=== PATIENT | male | born 1965 | race Caucasian/White ===

== ENCOUNTER 2016-10-21 21:47 | Emergency (ER) | payer BC ==
[2016-10-21] MEDS ORDERED: INSULIN REGULAR HUMAN 100 UNIT/1 ML 10 ML MDV IVP STA (22:17)
[2016-10-21] MEDS ORDERED: SODIUM CHLORIDE 0.9% 1,000 ML IV STA (22:17)
[2016-10-21] MEDS ORDERED: INSULIN REGULAR HUMAN 100 UNIT/1 ML 10 ML MDV ONE (22:32)
== END 2016-10-22 00:18 | disposition home or self-care (01) ==
DX: E11.65 Type 2 diabetes mellitus with hyperglycemia (principal); Z79.84 Long term (current) use of oral hypoglycemic drugs; I10 Essential (primary) hypertension; E78.00 Pure hypercholesterolemia, unspecified
CPT/HCPCS: 36415; 80048; 81003; 82009; 85025; 99283; J1815

== ENCOUNTER 2019-03-31 06:49 | Emergency (ER) | payer BC ==
[2019-03-31] MEDS ORDERED: KETOROLAC 30 MG/ML VIAL IVP STA (07:26)
[2019-03-31] MEDS ORDERED: SODIUM CHLORIDE 0.9% 1,000 ML IV ONE (07:26)
[2019-03-31] MEDS ORDERED: ONDANSETRON 4 MG/2 ML VIAL IVP STA (07:26)
--- NOTE | 2019-03-31 07:31 | ED Physician Documentation ---
PD HPI ABD PAIN - Stated complaint Stated Complaint: ABD PX - Chief complaint Chief Complaint: Abd Pain - History obtained from History obtained from: Patient - History of Present Illness Timing - onset: How many days ago (2) Timing - duration: Days (2) Timing - details: Still present Pain level now: 2 Quality: Pain Location: LLQ Associated symptoms: Nausea, Diarrhea Similar symptoms before: No diagnosis - Additional information Additional information: The patient is a 53-year-old insulin-dependent diabetic male who presents with left lower quadrant abdominal pain that has been waxing and waning for the past 2 days. He reports associated nausea, without vomiting. He reports multiple episodes of watery diarrhea. He has had chills and sweats, but is uncertain of fever. He denies dysuria. He reports history of chronic low back pain for which he takes ibuprofen, up to 800 mg 3 times daily. He reports having a similar episode 1 month ago, lasting for about 3 days. His past medical history, in addition to insulin-dependent diabetes, is significant for CABG in 2015, and remote history of appendectomy and cholecystectomy. In addition to insulin and metformin, his medications include Eliquis. Review of Systems Constitutional: reports: Chills, Sweats Nose: denies: Congestion Throat: denies: Sore throat Cardiac: denies: Chest pain / pressure Respiratory: denies: Dyspnea, Cough GI: reports: Abdominal Pain, Nausea, Diarrhea. denies: Vomiting : denies: Dysuria Skin: denies: Rash Musculoskeletal: reports: Back pain (Chronically, with no recent change.) Neurologic: reports: Headache (Chronic, low-grade headache.). denies: Focal weakness, Numbness PD PAST MEDICAL HISTORY - Past Medical History Past Medical History: Yes Cardiovascular: Hypertension, High cholesterol Endocrine/Autoimmune: Type 2 diabetes : Other Other Past Medical History: Enlarged Prostate - Past Surgical History Past Surgical History: Yes General: Cholecystectomy, Appendectomy Cardiovascular: Cardiac catheterization - Present Medications Home Medications: Ambulatory Orders Medication Instructions Recorded Confirmed Apixaban [Eliquis] 5 mg PO DAILY 04/29/16 03/31/19 Atorvastatin Calcium 80 mg PO QPM 04/29/16 03/31/19 Fenofibrate 1 tab PO QPM 04/29/16 03/31/19 Losartan Potassium 100 mg PO DAILY 04/29/16 03/31/19 Metformin HCl 1 tab PO BID 04/29/16 03/31/19 Metoprolol Succinate [Toprol Xl] 25 mg PO BID 04/29/16 03/31/19 diltiaZEM [Cardizem] 30 mg PO DAILY 04/29/16 03/31/19 Chlorthalidone 1 tab PO DAILY 03/31/19 03/31/19 - Allergies Allergies/Adverse Reactions: Allergies Allergy/AdvReac Type Severity Reaction Status Date / Time No Known Drug Allergies Allergy Verified 03/31/19 06:56 - Social History Does the pt smoke?: No Smoking Status: Never smoker Does the pt drink ETOH?: No Does the pt have substance abuse?: No Additional Social History: Dentist. - Immunizations Immunizations are current?: Yes - POLST Patient has POLST: No PD ED PE NORMAL - Vitals Vital signs reviewed: Yes (Borderline diastolic hypertension.) - General General: Alert and oriented X 3, Well developed/nourished - HEENT HEENT: Atraumatic, Moist mucous membranes, Pharynx benign - Neck Neck: No adenopathy, No JVD - Cardiac Cardiac: RRR, No murmur - Respiratory Respiratory: No respiratory distress, Clear bilaterally - Abdomen Abdomen: Soft, Non distended, Other (Diminished bowel tones. Soft with tenderness to palpation in the left lower quadrant, without rebound or guarding.) - Back Back: No CVA TTP - Derm Derm: No rash - Extremities Extremities: No edema, No calf tenderness / cord - Neuro Neuro: Alert and oriented X 3, No motor deficit, Normal speech Results - Vitals Vitals: Vital Signs - 24 hr 03/31/19 03/31/19 03/31/19 06:53 07:45 09:17 Temperature 36.8 C 36.5 C 36.6 C Heart Rate 94 91 80 Respiratory 18 16 18 Rate Blood Pressure 116/90 H 115/71 91/62 O2 Saturation 96 96 97 Oxygen O2 Source Room air - Labs Labs: Laboratory Tests 03/31/19 03/31/19 03/31/19 07:20 07:25 07:25 WBC 6.5 RBC 5.73 Hgb 16.1 Hct 48.7 MCV 85.0 MCH 28.1 MCHC 33.1 RDW 14.7 Plt Count 224 MPV 9.7 Neut # (Auto) 4.0 Lymph # (Auto) 1.7 [place] # (Auto) 0.6 Eos # (Auto) 0.2 Baso # (Auto) 0.1 Absolute Nucleated RBC 0.00 Nucleated RBC % 0.0 Sodium 137 Potassium 3.5 Chloride 99 L Carbon Dioxide 25 Anion Gap 13.0 BUN 22 H Creatinine 1.0 Estimated GFR (MDRD) 78 L Glucose 159 H Calcium 10.5 H Total Bilirubin 0.5 AST 22 ALT 26 Alkaline Phosphatase 63 Total Protein 7.7 Albumin 4.4 Globulin 3.3 Albumin/Globulin Ratio 1.3 Lipase 30 Urine Color YELLOW Urine Clarity CLEAR Urine pH 6.0 Ur Specific [place] 1.015 Urine Protein NEGATIVE Urine Glucose (UA) >=1000 H Urine Ketones NEGATIVE Urine Occult Blood NEGATIVE Urine Nitrite NEGATIVE Urine Bilirubin NEGATIVE Urine Urobilinogen 0.2 (NORMAL) Ur Leukocyte Esterase NEGATIVE Ur Microscopic Review NOT INDICATED Urine Culture Comments NOT INDICATED PD MEDICAL DECISION MAKING - ED course Complexity details: reviewed results, re-evaluated patient, considered differential, d/w patient ED course: The underlying cause of the patient's left-sided abdominal pain is uncertain at this time. Diverticulitis is a consideration, as is gastroenteritis or colitis. His white count is normal at 6.5. His chemistry panel reveals an elevated BUN to creatinine ratio of 22/1.0. His urinalysis is normal except for glucosuria of greater than 1000. CT scanner at [facility] is currently not functional, so I discussed the patient's condition with the emergency physician on duty at [facility], where the patient plans to go for CT scan of his abdomen. Treatment in the emergency department included administration of normal saline 1 L IV, ketorolac 30 mg IV, and Zofran 4 mg IV. His nausea resolved, and his discomfort improved. On reexamination he remains tender to palpation in the left lower quadrant. After I discussed the patient's condition with Dr. Carranza at [facility], she accepted transfer for further evaluation and treatment. The patient will be discharged and will go by private auto to [facility]. Departure - Departure Disposition: 01 Home, Self Care Clinical Impression: Abdominal pain Qualifiers: Abdominal location: left lower quadrant Qualified Code(s): R10.32 - Left lower quadrant pain Diarrhea Qualifiers: Diarrhea type: unspecified type Qualified Code(s): R19.7 - Diarrhea, unspecified Condition: Stable Instructions: ED Abdominal Pain Unkn Cause Comments: Go directly to [facility] in [place] where I have spoken to the emergency physician and advised that you will be arriving with the expectation of a CT scan of your abdomen and pelvis to further evaluate your left lower quadrant abdominal pain. Please do not eat or drink anything between now and your evaluation at [facility]. Discharge Date/Time: 03/31/19 09:40
[2019-03-31 07:36] LABS: BASOPHILS # (AUTO) 0.1 10^3/uL (0.0-0.1); BASOPHILS % (AUTO) 1.1 %; EOSINOPHILS # (AUTO) 0.2 10^3/uL (0.0-0.7); EOSINOPHILS % (AUTO) 2.9 %; HGB - HEMOGLOBIN 16.1 g/dL (14.0-18.0); LYMPHOCYTES # (AUTO) 1.7 10^3/uL (1.5-3.5); LYMPHOCYTES % (AUTO) 25.7 %; MEAN CORPUSCULAR HEMOGLOBIN 28.1 pg (27.0-31.0); MEAN CORPUSCULAR HGB CONC 33.1 g/dL (32.0-36.0); MEAN PLATELET VOLUME 9.7 fL (7.4-11.4); MONOCYTES # (AUTO) 0.6 10^3/uL (0.0-1.0); MONOCYTES % (AUTO) 9.1 %; NEUTROPHILS % (AUTO) 60.9 %; PLT - PLATELET COUNT 224 10^3/uL (130-450); RED BLOOD COUNT 5.73 10^6/uL (4.70-6.10); RED CELL DISTRIBUTION WIDTH 14.7 % (12.0-15.0); WHITE BLOOD COUNT 6.5 x10^3/uL (4.8-10.8)
[2019-03-31 08:15] LABS: BILIRUBIN,URINE NEGATIVE (NEGATIVE); GLUCOSE, URINE (UA) >=1000 mg/dL (NEGATIVE); KETONES,URINE (UA) NEGATIVE (NEGATIVE); LEUKOCYTE ESTERASE, URINE NEGATIVE (NEGATIVE); NITRITE,URINE NEGATIVE (NEGATIVE); OCCULT BLOOD,URINE NEGATIVE (NEGATIVE); PROTEIN,URINE NEGATIVE (NEGATIVE); UROBILINOGEN,URINE 0.2 (NORMAL) E.U./dL (NORMAL)
[2019-03-31 08:20] LABS: ALBUMIN 4.4 g/dL (3.2-5.5); ALBUMIN/GLOBULIN RATIO 1.3 (1.0-2.2); BILIRUBIN,TOTAL 0.5 mg/dL (0.2-1.0); CALCIUM 10.5 mg/dL (8.5-10.3); TOTAL PROTEIN 7.7 g/dL (6.7-8.2)
[2019-03-31 08:24] LABS: CLARITY,URINE CLEAR (CLEAR)
[2019-03-31 09:18] VITALS: BP 91/62
== END 2019-03-31 09:40 | disposition home or self-care (01) ==
LOC: ED 06:49
DX: R10.32 Left lower quadrant pain (principal); R19.7 Diarrhea, unspecified; I10 Essential (primary) hypertension; E11.9 Type 2 diabetes mellitus without complications; Z79.4 Long term (current) use of insulin
CPT/HCPCS: 36415; 80053; 81001; 81003; 83690; 85025; 87086; 96361; 96374; 99284

== ENCOUNTER 2020-11-17 22:04 | Emergency (ER) | payer BC, OTHER ==
--- OUTSIDE RECORDS SUMMARY | 2020-11-17 22:22 | EXTERNAL MEDICAL SUMMARY RPT | Continuity of Care Document ---
:1965 Demographics Phone Unavailable Preferred Language Unknown Marital Status Unknown Caodaism Affiliation Unknown Race Unknown Ethnic Group Unknown Author Organization [facility] Address [address] [phone] Phone Social History date description facility [phone]
--- NOTE | 2020-11-17 23:17 | ED Physician Documentation ---
PD HPI LOWER EXT INJURY - Stated complaint Stated Complaint: LT LEG SWELLING - Chief complaint Chief Complaint: Ext Problem - History obtained from History obtained from: Patient - Additional information Additional information: Patient comes emergency department chief complaint of acute left lower extremity swelling. Patient states he was just sitting tonight when he suddenly noticed that his leg was becoming tight. He states it felt like somebody just needed to pop it. The patient denies any pain in the leg. No fevers or chills. No chest pain or shortness of breath. He has a history of both coronary artery disease and previous DVT, and is been on Eliquis and Plavix for years. No recent dose changes. No missed doses. Patient states he actually took an extra dose of his Eliquis tonight because he was worried about formation of a blood clot again. Patient states he had bypass surgery and stents done in 2019, and that his last DVT was about 10 years ago. No recent trauma to the leg. No redness. Patient has not had any surgeries on the left lower extremity. No other complaints at this time. Patient states that over the hour, the swelling seems to have gotten a little better than when it first started. Review of Systems Ten Systems: 10 systems reviewed and negative Constitutional: reports: Reviewed and negative. denies: Fever, Chills Eyes: reports: Reviewed and negative Ears: reports: Reviewed and negative Nose: reports: Reviewed and negative Throat: reports: Reviewed and negative Cardiac: reports: Reviewed and negative Respiratory: reports: Reviewed and negative GI: reports: Reviewed and negative : reports: Reviewed and negative Skin: reports: Reviewed and negative Musculoskeletal: reports: Extremity swelling. denies: Extremity pain Neurologic: reports: Reviewed and negative Psychiatric: reports: Reviewed and negative Endocrine: reports: Reviewed and negative Immunocompromised: reports: Reviewed and negative PD PAST MEDICAL HISTORY - Past Medical History Past Medical History: Yes Cardiovascular: Hypertension, High cholesterol Endocrine/Autoimmune: Type 2 diabetes GI: Diverticulitis : Other - Past Surgical History Past Surgical History: Yes General: Cholecystectomy, Appendectomy Cardiovascular: CABG, Coronary stent, Cardiac catheterization - Present Medications Home Medications: Ambulatory Orders Medication Instructions Recorded Confirmed Apixaban [Eliquis] 5 mg PO BID 04/29/16 11/17/20 Atorvastatin Calcium 80 mg PO QPM 04/29/16 11/17/20 Fenofibrate 54 mg PO DAILY 04/29/16 11/17/20 Losartan Potassium 100 mg PO DAILY 04/29/16 11/17/20 Metformin HCl 1,000 mg PO BID 04/29/16 11/17/20 Metoprolol Succinate [Toprol Xl] 25 mg PO BID 04/29/16 11/17/20 Chlorthalidone 25 mg PO DAILY 03/31/19 11/17/20 Colesevelam HCl [Welchol] 1,875 mg PO BID 04/21/19 11/17/20 Empagliflozin [Jardiance] 10 mg PO DAILY 04/21/19 11/17/20 Insulin Glargine,Hum.rec.anlog 55 unit SUBQ DAILY 04/21/19 11/17/20 [Toujeo Solostar] Loperamide [Imodium] 2 mg PO Q2H PRN MDD 8 caps 04/21/19 11/17/20 Tamsulosin [Flomax] 0.4 mg PO DAILY 04/21/19 11/17/20 Clopidogrel [Plavix] 75 mg PO DAILY 11/17/20 11/17/20 - Allergies Allergies/Adverse Reactions: Allergies Allergy/AdvReac Type Severity Reaction Status Date / Time No Known Drug Allergies Allergy Verified 11/17/20 22:13 - Social History Does the pt smoke?: No Smoking Status: Never smoker Does the pt drink ETOH?: No Does the pt have substance abuse?: No - Immunizations Immunizations are current?: Yes - POLST Patient has POLST: No PD ED PE NORMAL - Vitals Vital signs reviewed: Yes - General General: Alert and oriented X 3, No acute distress, Well developed/nourished - HEENT HEENT: Atraumatic, PERRL, EOMI, Moist mucous membranes - Neck Neck: Supple, no meningeal sign - Cardiac Cardiac: RRR, No murmur, Strong equal pulses - Respiratory Respiratory: No respiratory distress, Clear bilaterally - Derm Derm: Warm and dry, Other (No erythema of left lower extremity. No crepitus, induration, or fluctuance.) - Extremities Extremities: No deformity, Other (Mild left lower extremity edema, with trace pitting. No tenderness of calf. No edema or tenderness at knee or ankle. Full range of motion.) - Neuro Neuro: Alert and oriented X 3 - Psych Psych: Normal mood, Normal affect Results - Vitals Vitals: Vital Signs - 24 hr 11/17/20 22:09 Temperature 36.1 C L Heart Rate 72 Respiratory 16 Rate Blood Pressure 157/85 H O2 Saturation 97 Oxygen O2 Source Room air PD MEDICAL DECISION MAKING - ED course Complexity details: considered differential, d/w patient ED course: I discussed with the patient that the likelihood of having formed another DVT while on both Eliquis and Plavix is low. Additionally, the symptoms have been extremely acute, and patient has specifically denied any symptoms prior to few hours ago. Furthermore, the patient has no symptoms consistent with a PE and is very well-appearing. At this point in time, I have discussed with the patient that there is no way to know for sure whether he has a DVT again except to do an ultrasound. I have offered this tonight in the ED, but have also discussed that since his symptoms seem to be improving a little and he is already on anticoagulation, it may be reasonable to see how the symptoms go tomorrow, which is Thursday, and make an appointment with his primary care physician on Thursday if the symptoms do not seem to have fully improved. Patient understands that while at this point in time, there is not evidence of an emergent condition, I am certainly willing to order the ultrasound from the ED tonight if he prefers. The patient would prefer to see how things go tomorrow and plan to follow-up with his primary care physician. I feel that this is a reasonable option, all things considered. We have discussed that should the patient develop any chest pain or shortness of breath, he should return to the emergency department immediately. The patient also understands that if his leg continues to swell and become increasingly enlarged and uncomfortable, he may return to the emergency dept at any time for further evaluation Departure - Departure Disposition: 01 Home, Self Care Clinical Impression: Swelling of lower extremity Condition: Stable Instructions: ED Leg Swelling Unilateral Comments: As we have discussed, it is not clear exactly why your left leg has acutely become swollen tonight. You have not experienced any trauma, and there is no evidence of infection. Generally, formation of a clot large enough to cause symptoms occurs over a longer period of time, at least over a number of days. Furthermore, given that you are on 2 anticoagulant medications, it would be highly unlikely that you would form another clot. However, it is not outside of the realm of possibility, and as we have discussed, an ultrasound could be done from the emergency department, or ordered by her primary care physician. You have opted for now to see how things go tomorrow and follow-up with your primary care physician if the symptoms seem to be worsening or not getting better. This is a reasonable option, given that you are already on blood thinners. However, if you find that your leg is rapidly becoming worse, you may return to the emergency department for re-evaluation. If you develop chest pain or shortness of breath, you should return to the emergency department immediately. For now, we will have you continue the medications that you are on at your current doses. When you follow-up with your primary care physician, please discuss whether he or she feels you should have any changes made, or stay on your current regimen.
[2020-11-17 23:36] VITALS: BP 145/76
== END 2020-11-17 23:35 | disposition home or self-care (01) ==
LOC: ED 22:04
DX: R60.0 Localized edema (principal); Z86.718 Personal history of other venous thrombosis and embolism; Z79.01 Long term (current) use of anticoagulants; Z79.02 Long term (current) use of antithrombotics/antiplatelets; I25.10 Atherosclerotic heart disease of native coronary artery without angina pectoris; Z95.1 Presence of aortocoronary bypass graft; I10 Essential (primary) hypertension; E11.9 Type 2 diabetes mellitus without complications; Z79.4 Long term (current) use of insulin
CPT/HCPCS: 99281

== ENCOUNTER 2022-12-03 11:23 | Emergency (ER) | payer BC ==
--- NOTE | 2022-12-03 12:48 | XRAY Report ---
PROCEDURE: Knee 4 View LT INDICATIONS: Trauma TECHNIQUE: 3 views of the left knee(s) were acquired. COMPARISON: None. FINDINGS: Bones: No fractures or dislocations. No suspicious bony lesions. Moderate joint space narrowing Soft tissues: No knee joint effusion. No suspicious soft tissue calcifications or masses. Atheroscle rotic vascular calcification IMPRESSION: No acute bony abnormality. Moderate arthritic joint space narrowing and patellar enthesophyte Reviewed by: Alexis Schroeder MD on 12/03/2022 11:47 AM BELIA Approved by: Alexis Schroeder MD on 12/03/2022 11:47 AM BELIA Station ID: [id number]
[2022-12-03] MEDS ORDERED: HYDROmorphone 1 MG/ML CARPUJECT IM STA (12:50)
--- NOTE | 2022-12-03 12:58 | XRAY Report ---
PROCEDURE: Wrist 4 View RT INDICATIONS: Trauma TECHNIQUE: 4 views of the wrist were acquired. COMPARISON: None. FINDINGS: Bones: No fractures or dislocations. No suspicious bony lesions. Soft tissues: No suspicious soft tissue calcifications or masses. IMPRESSION: No acute bony abnormality. Reviewed by: Alexis Schroeder MD on 12/03/2022 11:57 AM AKSARITA Approved by: Alexis Schroeder MD on 12/03/2022 11:57 AM AKDT Station ID: [id number]
--- NOTE | 2022-12-03 13:04 | ED Physician Documentation ---
History of Present Illness - Stated complaint Stated Complaint: LT KNEE INJ - Chief complaint Chief Complaint: Trauma Ext - Additonal information Additional information: 57-year-old male presents emergency department for evaluation of acute left knee pain and right forearm pain. Reports was attempting to place his shoes on when he leaned back against a railing where there was an empty space falling backwards about 2 feet onto hard concrete. He had pain immediately in the knee and inability to bear weight. Large abrasion on the right wrist. He is anticoagulated on Eliquis as well as Plavix secondary to a history of 8 cardiac stents. Denies chest pain or shortness of air. No back pain Review of Systems Skin: reports: Abrasion (s) Musculoskeletal: reports: Joint pain PD PAST MEDICAL HISTORY - Past Medical History Cardiovascular: Hypertension, High cholesterol Endocrine/Autoimmune: Type 2 diabetes GI: Diverticulitis : Other - Past Surgical History Past Surgical History: Yes General: Cholecystectomy, Appendectomy Cardiovascular: CABG, Coronary stent, Cardiac catheterization - Present Medications Home Medications: Ambulatory Orders Medication Instructions Recorded Confirmed Apixaban [Eliquis] 5 mg PO BID 04/29/16 12/03/22 Atorvastatin Calcium 80 mg PO QPM 04/29/16 12/03/22 Fenofibrate 54 mg PO DAILY 04/29/16 12/03/22 Losartan Potassium 100 mg PO DAILY 04/29/16 12/03/22 Metformin HCl 1,000 mg PO BID 04/29/16 12/03/22 Metoprolol Succinate [Toprol Xl] 25 mg PO BID 04/29/16 12/03/22 Empagliflozin [Jardiance] 10 mg PO DAILY 04/21/19 12/03/22 Insulin Glargine,Hum.rec.anlog 55 unit SUBQ DAILY 04/21/19 12/03/22 [Touellen Solostar] Loperamide [Imodium] 2 mg PO Q2H PRN MDD 8 caps 04/21/19 12/03/22 Clopidogrel [Plavix] 75 mg PO DAILY 11/17/20 12/03/22 Tamsulosin [Flomax] 0.4 mg PO DAILY 12/03/22 12/03/22 oxyCODONE [Roxicodone] 5 mg PO TID PRN #20 tablet 12/03/22 - Allergies Allergies/Adverse Reactions: Allergies Allergy/AdvReac Type Severity Reaction Status Date / Time No Known Drug Allergies Allergy Verified 12/03/22 11:31 - Social History Does the pt smoke?: No Smoking Status: Never smoker Does the pt drink ETOH?: No Does the pt have substance abuse?: No - Immunizations Immunizations are current?: Yes - POLST Patient has POLST: No PD ED PE NORMAL - General General: Alert and oriented X 3, No acute distress - Neck Neck: Supple, no meningeal sign, C-Spine cleared by NEXUS criteria - Cardiac Cardiac: RRR, No murmur - Respiratory Respiratory: No respiratory distress - Abdomen Abdomen: Normal bowel sounds, Soft, Non tender, Non distended - Extremities Extremities: No tenderness to palpate (Superficial abrasion on the right forearm. No tenderness at the proximal wrist. Neurovascularly intact.), Other (Left knee with palpable effusion. Patient able to flex the knee but has difficulty extending secondary to pain. No laxity. Superficial abrasion on the patella. Neurovascularly intact) - Neuro Neuro: Alert and oriented X 3, divorce mediator 2-12 intact Eye Opening: Spontaneous Motor: Obeys Commands Verbal: Oriented GCS Score: 15 - Psych Psych: Normal mood Results - Vitals Vitals: Vital Signs - 24 hr 12/03/22 12/03/22 11:28 13:41 Temperature 36.0 C L Heart Rate 76 75 Respiratory 16 16 Rate Blood Pressure 172/89 H 163/80 H O2 Saturation 97 96 Oxygen O2 Source Room air - Rads (name of study) CT head Relevant Findings:: Final report received (Atrophy and chronic ischemic change without intracranial hemorrhage or mass effect) right wrist xr Relevant Findings:: Final report received left knee xr Relevant Findings:: Final report received (No acute bony abnormality. Moderate arthritic joint space narrowing of patellar enthesophyte) PD Medical Decision Making - ED course Complexity details: reviewed results, re-evaluated patient, considered differential, d/w patient ED course: 57-year-old male who is anticoagulated on Plavix and Eliquis due to coronary artery disease status post 8 stents presents emergency department after a fall from his porch. He was attempting to put on his shoes and thought he leaned back against a rail but there was an open space and a fell down about 2 feet onto a concrete step. Did not strike his head or lose consciousness but had a very large abrasion on his right forearm and wrist as well as immediate inability to bear weight on the left knee. No previous history of injury to either extremity. He denies neck pain back pain or hip pain otherwise. On exam large hematoma on the right wrist and forearm. He has neurovascularly intact. Normal movement of the hand and wrist in all planes. No anatomic snu ffbox tenderness. An x-ray of the wrist as interpreted by the radiologist shows no acute fracture. As such history and exam is consistent with a contusion and abrasion here. CT of the head was negative for any acute intracranial findings. Neurologically the patient is intact without focal deficits. Subsequently an x-ray of the knee showed no acute fracture or dislocation. He does have a moderate effusion noted. Patient will be placed in immobilizer and given crutches. I am advising mild compress and ice. Given inability to tolerate NSAID will write a limited prescription of oxycodone for pain. Patient will follow with his primary provider through [facility] and request referral to orthopedics in follow- up. The usual emergent return precautions were discussed for worsening symptoms I am prescribing a short course of short-acting opioid pain medication for this patient. I have reviewed the patients DIRECTOR OF NEUROLOGY and no concerning findings were noted. I have discussed that the opioids are for short term therapy only, and will not be refilled from the ED. Departure - Departure Disposition: 01 Home, Self Care Clinical Impression: Effusion, left knee, Anticoagulated Fall Qualifiers: Encounter type: initial encounter Qualified Code(s): W19.XXXA - Unspecified fall, initial encounter Contusion of right forearm Qualifiers: Encounter type: initial encounter Qualified Code(s): S50.11XA - Contusion of right forearm, initial encounter Left knee pain Qualifiers: Chronicity: acute Qualified Code(s): M25.562 - Pain in left knee Condition: Stable Record reviewed to determine appropriate education?: Yes Instructions: ED Contusion Lower Ext Prescriptions: oxyCODONE [Roxicodone] 5 mg PO TID PRN #20 tablet PRN Reason: Pain Comments: Ronny you are seen today after you fell from your porch onto a hard concrete step when attempting to put on your shoes. We did do a CT of your head that showed no findings of bruising or bleeding within the brain. The x-ray of your right wrist and forearm also shows no broken bones. The abrasion and bruising there is consistent with a contusion. As you are anticoagulated I expect that you davian l find this gets significantly bruised. I recommend applying ice to this for about 10 minutes 2-3 times a day for the next several days. I am the x-ray of your knee does not show an obvious fracture though you do have an effusion developing around the knee. I suspect that you are developing but could be called a hemarthrosis or blood around the knee or within the joint. Over the next several days I encourage you to gently compress the knee with an Cedric bandage and apply ice to it. We are giving you crutches and a knee immobilizer to aid you in ambulation. Is important you discuss this ED visit with your primary care provider. You should obtain referral to orthopedics for follow-up. However with simple contusions such as this I would expect markedly improved symptoms over the next 7 to 10 days. If your pain inability to bear weight is not improving, or you develop worsening symptoms or any fevers please return to the ER for a repeat evaluation. I am prescribing a short course of narcotic pain medication for you. These are potentially dangerous and addictive medications that should be used carefully. These medications may constipate you. Take an mgnu-vbj-rvsluiy stool softener (docusate) twice daily with plenty of water while taking these medications. If you go 24 hours without a bowel movement, take cspo-bch-qtenyvs miralax, per package instructions. Do not drink or drive while taking these medications. If you received narcotic or sedating medications while in the emergency department, do not drive for 24 hours. Store this medication in a safe, secure place and out of reach of children. It is a violation of federal law to give or sell this medication to another person or to use in a manner other than prescribed. The ED will not refill narcotic prescriptions, including prescriptions lost or stolen. To dispose of unwanted medications: 1. [facility] [address] [facility] in [place] has a medication drop box. They accept prescription medications (in pill form) Thursday through Thursday 9:00 a.m. to 5:00 p.m. 2. [facility] accepts prescription medications (in pill form only) for disposal year round. Call for more information. 3. Contact the [facility] for the next [facility] sponsored prescription drug collection event. , [phone], or [phone]; Note that many narcotic pain relievers also contain Tylenol/acetaminophen. Please ensure that your total dose of acetaminophen from all sources does not exceed 3 g (3000 mg) per day.
--- NOTE | 2022-12-03 13:40 | CT Report ---
PROCEDURE: CT brain without contrast INDICATIONS: glf on eliquis TECHNIQUE: Noncontrast 4.5 mm thick angled axial sections acquired from the foramen magnum to the vertex. For r adiation dose reduction, the following was used: automated exposure control, adjustment of mA and/or kV according to patient size. COMPARISON: None. FINDINGS: Image quality: Excellent. CSF spaces: Basal cisterns are patent. No extra-axial fluid collections. Ventricles are normal in size and shape. Brain: No midline shift. No intracranial masses or hemorrhage. Licona-white matter interface is norm al. Atrophy and multifocal white matter chronic ischemic change. Skull and face: Calvarium and visualized facial bones are intact, without suspicious lesions. Sinuses: Visualized sinuses and mastoids are clear. IMPRESSION: Atrophy and chronic ischemic change without intracranial hemorrhage or mass effect Reviewed by: Alexis Schroeder MD on 12/03/2022 12:39 PM AKSARITA Approved by: Alexis Schroeder MD on 12/03/2022 12:39 PM AKDT Station ID: [id number]
[2022-12-03 13:42] VITALS: BP 163/80
== END 2022-12-03 14:58 | disposition home or self-care (01) ==
LOC: ED 11:23
DX: S60.811A Abrasion of right wrist, initial encounter (principal); S50.811A Abrasion of right forearm, initial encounter; S80.212A Abrasion, left knee, initial encounter; S50.11XA Contusion of right forearm, initial encounter; W17.89XA Other fall from one level to another, initial encounter; Y93.E8 Activity, other personal hygiene; Y92.008 Other place in unspecified non-institutional (private) residence as the place of occurrence of the external cause; M25.462 Effusion, left knee; Z79.01 Long term (current) use of anticoagulants
CPT/HCPCS: 70450; 73110; 73564; 96374; 99284; J1170

== ENCOUNTER 2023-04-29 07:48 | Outpatient (CLI) | payer BC ==
[2023-04-29 14:37] LABS: BASOPHILS # (AUTO) 0.1 10^3/uL (0.0-0.1); BASOPHILS % (AUTO) 1.4 %; EOSINOPHILS # (AUTO) 0.2 10^3/uL (0.0-0.7); EOSINOPHILS % (AUTO) 3.5 %; HCT - HEMATOCRIT 47.6 % (42.0-52.0); HGB - HEMOGLOBIN 14.8 g/dL (14.0-18.0); LYMPHOCYTES # (AUTO) 1.3 10^3/uL (1.5-3.5); MEAN CORPUSCULAR HEMOGLOBIN 27.9 pg (27.0-31.0); MEAN CORPUSCULAR HGB CONC 31.1 g/dL (32.0-36.0); MEAN CORPUSCULAR VOLUME 89.8 fL (80.0-94.0); MONOCYTES # (AUTO) 0.5 10^3/uL (0.0-1.0); MONOCYTES % (AUTO) 8.7 %; NEUTROPHILS # (AUTO) 3.2 10^3/uL (1.5-6.6); NEUTROPHILS % (AUTO) 60.8 %; PLT - PLATELET COUNT 221 10^3/uL (130-450); RED CELL DISTRIBUTION WIDTH 15.3 % (12.0-15.0); WHITE BLOOD COUNT 5.2 x10^3/uL (4.8-10.8)
[2023-04-29 14:56] LABS: ALBUMIN 4.5 g/dL (3.2-5.5); ALBUMIN/GLOBULIN RATIO 1.8 (1.0-2.2); ALKALINE PHOSPHATASE 71 IU/L (42-121); ALT ALANINE AMINOTRANSFERASE 41 IU/L (10-60); AST ASPARTATE AMINOTRANSFERASE 26 IU/L (10-42); BILIRUBIN,TOTAL 0.6 mg/dL (0.2-1.0); BUN - BLOOD UREA NITROGEN 21 mg/dL (6-20); CALCIUM 9.5 mg/dL (8.5-10.3); CARBON DIOXIDE - CO2 26 mmol/L (21-32); CHLORIDE 103 mmol/L (101-111); CHOL/HDL RATIO 4.2 (<5.0); CHOLESTEROL 156 mg/dL; CREATININE 0.8 mg/dL (0.6-1.3); GFR - MDRD 99 (>89); GLUCOSE 196 mg/dL (74-104); HDL CHOLESTEROL 37 mg/dL; POTASSIUM 4.6 mmol/L (3.5-4.5); SODIUM 136 mmol/L (135-145); TRIGLYCERIDES 469 mg/dL (48-352)
[2023-04-29 15:08] LABS: THYROID STIMULATING HORMONE 3.67 uIU/mL (0.34-5.60)
[2023-04-29 15:16] LABS: ESTIMATED AVERAGE GLUCOSE 189 mg/dL (70-100); HEMOGLOBIN A1c% 8.2 % (4.27-6.07)
[2023-04-29 15:19] LABS: LDL CHOLESTEROL,DIRECT 69 mg/dL (75-193); LDLD/HDL RATIO 1.9 (<3.6)
== END 2023-04-29 07:49 | disposition home or self-care (01) ==
LOC: LAB.S 07:48
PROVIDERS: ATTEND Physician Assistant
DX: E11.9 Type 2 diabetes mellitus without complications (principal); E78.5 Hyperlipidemia, unspecified; I10 Essential (primary) hypertension; D68.9 Coagulation defect, unspecified; Z79.4 Long term (current) use of insulin
CPT/HCPCS: 36415; 80053; 80061; 82043; 82570; 83036; 83721; 84443; 85025

== ENCOUNTER 2023-06-04 08:00 | Outpatient (CLI) | payer BC ==
[2023-06-04 16:20] LABS: BILIRUBIN,URINE NEGATIVE (NEGATIVE); GLUCOSE, URINE (UA) >=1000 mg/dL (NEGATIVE); KETONES,URINE (UA) NEGATIVE (NEGATIVE); LEUKOCYTE ESTERASE, URINE NEGATIVE (NEGATIVE); NITRITE,URINE NEGATIVE (NEGATIVE); OCCULT BLOOD,URINE NEGATIVE (NEGATIVE); PROTEIN,URINE NEGATIVE (NEGATIVE); UROBILINOGEN,URINE 0.2 (NORMAL) E.U./dL (NORMAL)
[2023-06-04 16:25] LABS: CLARITY,URINE CLEAR (CLEAR)
[2023-06-04 16:36] LABS: BACTERIA,URINE None Seen /HPF (None Seen); RBC,URINE 0-5 /HPF (0-5); SQUAMOUS EPITHELIAL CELL,UR RARE Squamous (<= Few); WBC,URINE 0-3 /HPF (0-3)
== END 2023-06-04 23:59 | disposition home or self-care (01) ==
LOC: LAB 08:00
PROVIDERS: ATTEND Urology
DX: N40.0 Benign prostatic hyperplasia without lower urinary tract symptoms (principal)
CPT/HCPCS: 81001; 87086

== ENCOUNTER 2023-09-08 10:04 | Outpatient (CLI) | payer BC ==
[2023-09-08 15:08] LABS: CHOL/HDL RATIO 4.4 (<5.0); CHOLESTEROL 168 mg/dL; HDL CHOLESTEROL 38 mg/dL; TRIGLYCERIDES 541 mg/dL (48-352)
[2023-09-08 15:55] LABS: CREATININE,URINE 46.2 mg/dL; MICROALBUM/CREATININE RATIO,UR 77.9 ug/mg (<30.0); MICROALBUMIN,URINE 3.6 mg/dL
[2023-09-08 17:13] LABS: LDL CHOLESTEROL,DIRECT 78 mg/dL (75-193); LDLD/HDL RATIO 2.1 (<3.6)
[2023-09-08 18:41] LABS: ESTIMATED AVERAGE GLUCOSE 203 mg/dL (70-100); HEMOGLOBIN A1c% 8.7 % (4.27-6.07)
== END 2023-09-08 10:05 | disposition home or self-care (01) ==
LOC: LAB.S 10:04
PROVIDERS: ATTEND Nurse Practitioner Acute Care
DX: E11.9 Type 2 diabetes mellitus without complications (principal); E78.1 Pure hyperglyceridemia; Z13.1 Encounter for screening for diabetes mellitus; Z79.4 Long term (current) use of insulin
CPT/HCPCS: 36415; 80061; 82043; 82570; 83036; 83721

== ENCOUNTER 2023-10-16 08:47 | Outpatient (CLI) | payer BC ==
[2023-10-16 15:52] LABS: CHOL/HDL RATIO 4.4 (<5.0); CHOLESTEROL 145 mg/dL; HDL CHOLESTEROL 33 mg/dL; TRIGLYCERIDES 495 mg/dL (48-352)
[2023-10-16 16:38] LABS: LDL CHOLESTEROL,DIRECT 61 mg/dL (75-193); LDLD/HDL RATIO 1.8 (<3.6)
== END 2023-10-16 08:48 | disposition home or self-care (01) ==
LOC: LAB.S 08:47
PROVIDERS: ATTEND Nurse Practitioner Acute Care
DX: E78.1 Pure hyperglyceridemia (principal)
CPT/HCPCS: 36415; 80061; 83721